=== PATIENT | female | born 2000 | race Caucasian/White ===

== ENCOUNTER 2020-06-01 18:44 | Emergency (ER) | payer OTHER ==
[~2020-06-01] VITALS: Ht 170.2 cm; Wt 81.8 kg
[2020-06-01 20:55] LABS: HEMATOCRIT 37.2 % (37.0-47.0); HEMOGLOBIN 12.4 g/dl (12.5-16.0); MEAN CELL VOLUME 91 fl (80.0-100.0); MEAN CORPUSCULAR HEMOGLOBIN 30 pg (27.0-31.0); MEAN CORPUSCULAR HGB CONC 33 g/dl (33.0-37.0); MEAN PLATELET VOLUME 10.4 fl (7.4-10.4); PLATELET COUNT 218 K/mm3 (130-400); RED BLOOD COUNT 4.09 M/mm3 (4.10-5.30)
[2020-06-01 20:58] LABS: ALBUMIN 3.7 gm/dL (3.5-5.0); BILIRUBIN,TOTAL 0.8 mg/dL (0.0-1.0); CREATININE, serum 0.62 (0.52-1.25); POTASSIUM 3.6 mmol/L (3.4-5.0); TOTAL PROTEIN 7.2 gm/dL (6.4-8.2)
[2020-06-01 21:09] LABS: MONOSCREEN NEGATIVE
[2020-06-01 21:10] LABS: C-REACTIVE PROTEIN 23.5 mg/dL (0.0-0.9)
[2020-06-01 21:44] LABS: BAND 9 % (0-10); LYMPHOCYTE 7 % (20.0-51.0); NEUTROPHILS 79 % (42.0-75.2)
[2020-06-01 21:47] LABS: PLATELET ESTIMATE NORMAL (NORMAL)
[2020-06-01] MEDS ORDERED: CLEOCIN HCL300 MG PO (21:51)
[2020-06-01] MEDS ORDERED: ZOFRAN ODT4 MG PO (21:51)
[2020-06-01 22:04] VITALS: BP 122/74; PULSE 76; TEMP 99.3
== END 2020-06-01 22:00 | disposition home or self-care (01) ==
LOC: COL.ER 18:44
PROVIDERS: Nurse Practitioner
DX: J03.90 Acute tonsillitis, unspecified (principal); Z79.2 Long term (current) use of antibiotics; Z79.891 Long term (current) use of opiate analgesic
CPT/HCPCS: J1100